=== PATIENT | female | born 1975 | race Caucasian/White ===

== ENCOUNTER 2016-06-26 16:53 | Emergency (ER) | payer SELFPAY ==
[~2016-06-26] VITALS: Ht 157.5 cm; Wt 58.0 kg
[~2016-06-26 16:53] MED LIST: ALBU1AER INH; PRED20 PO; PROZ20CA11 PO; XANA1TAB6 PO; ZITH250T PO; ZOLP10TA3 PO
[2016-06-26 16:58] VITALS: BP 163/107; PULSE 117; RESP 22; TEMP 99; O2SAT 98
[2016-06-26] MEDS ORDERED: PROZ20CA11 PO ×2 (17:18→17:23)
[2016-06-26 17:21] VITALS: BP 163/107; PULSE 116; RESP 18; TEMP 99; O2SAT 99
--- NOTE | 2016-06-26 17:22 | PD ---
HPI Chief Complaint: Anxiety Time Seen by Provider: 17:11 Travel History International Travel<30 days: No Contact w/Intl Traveler<30days: No Traveled to known affect area: No History of Present Illness HPI The patient was seen and examined in the presence of the nurse. She complains of running out of her medications. She is on Prozac and Xanax. She ran out of her medications yesterday. She denies suicidal ideation. She did not call her physician for more medication. 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) Social History Alcohol Use: No Tobacco Use: Yes (1pack a week- cigs - and uses e-cigs) Substance Use: No Allergies-Medications (Allergen,Severity, Reaction): Coded Allergies: No Known Allergies (Verified , 06/26/16) Reported Meds & Prescriptions Reported Meds & Active Scripts Active Prozac (Fluoxetine HCl) 20 Mg Cap 20 Mg PO DAILY Proair Hfa (Albuterol Sulfate) 8.5 Gm Aero 1 Puff INH Q6H PRN * SHAKE WELL BEFORE USE * Deltasone 20 Mg Tab (Prednisone) 20 Mg Tab 60 Mg PO DAILY 5 Days Zithromax Z-Lm (Azithromycin) 250 Mg Tab 250 Mg PO DIRECTED 500 MG (2 TABLETS) PO ON DAY 1, THEN 250 MG (1 TABLET) PO ON DAYS 2 TO 5. Prozac (Fluoxetine HCl) 20 Mg Cap 20 Mg PO DAILY Reported Ambien 10 Mg Tab (Zolpidem Tartrate) 10 Mg Tab 10 Mg PO HS PRN Xanax 1 mg (Alprazolam) Alprazolam 1 mg Tab 1 Tab PO TID Review of Systems General / Constitutional: No: Fever HENT: No: Headaches Cardiovascular: No: Chest Pain or Discomfort Physical Exam Narrative CARDIOVASCULAR: Regular rate and rhythm without murmur. Extremities showed no edema or varicosities. RESPIRATORY: Respiratory effort unlabored, no retractions or use of accessory muscles. Breath sounds are clear and symmetric. NECK: Symmetrical appearance, midline trachea. No mass or crepitus. Thyroid without enlargement, tenderness, or mass. SKIN: Inspection shows no rash or ulcers. Palpation shows no induration or nodules. Data Data Last Documented VS Vital Signs Date Time Temp Pulse Resp B/P Pulse Ox O2 Delivery O2 Flow Rate FiO2 06/26/16 16:58 99.0 117 22 163/107 98 Orders Chlordiazepoxide (Librium) (06/26/16 17:30) [facility] Medical Decision Making Medical Screen Exam Complete: Yes Emergency Medical Condition: Yes Medical Record Reviewed: Yes Differential Diagnosis Depression, anxiety, adjustment disorder Narrative Course I have reviewed the patient's electronic medical record. Patient is anxiety and depression but not suicidal and not wanting psychiatric screening. She wants refills of her medications. I wrote her a month of Prozac Recommend she weaned herself off of Xanax and discussed this with her physician I gave her a dose of Librium now I don't feel she has benzodiazepine withdrawal now Diagnosis Primary Impression: Anxiety and depression Additional Instructions: The patient was advised to follow up with their physician and return if they worsen. Med/Other Pt SpecificInfo: Prescription(s) given Scripts Fluoxetine (Prozac)20 Mg Cap20 Mg PO DAILY #30 CAP Ref 0 Prov:Papo Sanders MD 06/26/16 Disposition: 01 DISCHARGE HOME Condition: Stable Papo Sanders MD Jun 26, 2016 17:22
[2016-06-26] MEDS ORDERED: AMBI10TA PO (17:23)
[2016-06-26] MEDS ORDERED: XANA1TAB2 PO (17:23)
[2016-06-26] MEDS ORDERED: chlordiazePOXIDE 25 MG CAP PO ONE (17:30)
== END 2016-06-26 17:37 | disposition home or self-care (01) ==
LOC: PHED 16:53
DX: F41.8 Other specified anxiety disorders (principal); F17.210 Nicotine dependence, cigarettes, uncomplicated
CPT/HCPCS: 99283

== ENCOUNTER 2017-04-11 05:58 | Emergency (ER) | payer SELFPAY ==
[~2017-04-11] VITALS: Ht 157.5 cm; Wt 55.0 kg
[~2017-04-11 05:58] MED LIST changes: -ALBU1AER INH; +AMBI10TA PO; -PRED20 PO; +XANA1TAB2 PO; -XANA1TAB6 PO; -ZITH250T PO; -ZOLP10TA3 PO
[2017-04-11 06:02] VITALS: BP 156/88; PULSE 81; RESP 18; TEMP 98.3; O2SAT 100
[2017-04-11] MEDS ORDERED: SODIUM CHLOR 0.9% 1000 ML INJ 1,000 ML IV SCH (06:06)
[2017-04-11 06:09] VITALS: O2SAT 100
[2017-04-11] MEDS ORDERED: DIATRIZOATE MEGLUM/DIATRIZOATE SOD 9 ML CUP ONE (06:14)
[2017-04-11] MEDS ORDERED: MORPHINE SULFATE 4 MG/ML INJ IV PUSH ONE (06:15)
[2017-04-11] MEDS ORDERED: SODIUM CHLORIDE 0.9% FLUSH 10 ML FLUSH IV FLUSH PRN (06:15)
[2017-04-11] MEDS ORDERED: ONDANSETRON HCL 4 MG/2 ML VIAL IVP ONE (06:15)
[2017-04-11 06:23] LABS: AUTOMATED NEUTROPHIL # 3.3 TH/MM3 (1.8-7.7); BASOPHIL % 0.5 % (0.0-2.0); EOSINOPHIL # 0.1 TH/MM3 (0-0.4); EOSINOPHIL % 2.3 % (0.0-4.0); HEMATOCRIT 36.8 % (35.0-46.0); LYMPH % 34.7 % (9.0-44.0); LYMPHOCYTE # 2.1 TH/MM3 (1.0-4.8); MEAN CELL VOLUME 81.6 FL (80.0-100.0); MEAN CORPUSCULAR HEMOGLOBIN 26.5 PG (27.0-34.0); MEAN CORPUSCULAR HGB CONC 32.5 % (32.0-36.0); MEAN PLATELET VOLUME 7.3 FL (7.0-11.0); MONO % 8.7 % (0.0-8.0); MONOCYTE # 0.5 TH/MM3 (0-0.9); NEUT % 53.8 % (16.0-70.0); PLATELET COUNT 286 TH/MM3 (150-450); RED BLOOD COUNT 4.51 MIL/MM3 (4.00-5.30); RED CELL DISTRIBUTION WIDTH 13.9 % (11.6-17.2)
--- NOTE | 2017-04-11 06:27 | PD ---
HPI Chief Complaint: Abdominal Pain Time Seen by Provider: 06:06 Travel History International Travel<30 days: No Contact w/Intl Traveler<30days: No Traveled to known affect area: No History of Present Illness HPI 41-year-old female here for evaluation of lower abdominal and pelvic pain. Symptoms started suddenly about 30 minutes prior to arrival. Shortly after the pain started she noted vaginal bleeding. She states that she believes this is the beginning of her menstrual period. She has history of bilateral fallopian tube coils. No history of abdominal surgeries. Pain is described as cramping, moderate to severe, worse with movement and palpation, worse in her right lower quadrant. She denies fevers or recent illness. She feels nauseous but has not vomited. No urinary symptoms. She is sexually active with one partner, however she states she has not seen him in over 2 months. She believes this to be a monogamous relationship. She denies vaginal discharge other than bleeding. 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 SKIN: Focused skin assessment warm/dry. HEAD: Atraumatic. Normocephalic. EYES: Pupils equal and round. No scleral icterus. No injection or drainage. ENT: Mucous membranes pink and moist. NECK: Trachea midline. No JVD. CARDIOVASCULAR: Regular rate and rhythm. RESPIRATORY: No accessory muscle use. Clear to auscultation. Breath sounds equal bilaterally. GASTROINTESTINAL: Abdomen soft, nondistended. Moderate right lower quadrant and suprapubic tenderness without peritoneal signs. Rest of abdomen is soft and nontender. Normal bowel sounds. No hernias. AUDIO VISUAL ARTS DIRECTOR: Exam performed in the presence of a female nurse. Normal external genitalia. Moderate amount of blood in vaginal vault coming from cervical os. Normal appearing cervix without masses. No CMT. No uterine tenderness. No left adnexal mass or tenderness. No right adnexal mass, however there is moderate right adnexal tenderness. MUSCULOSKELETAL: No obvious deformities. No clubbing. No cyanosis. No edema. NEUROLOGICAL: Awake and alert. No obvious cranial nerve deficits. Motor grossly within normal limits. Normal speech. PSYCHIATRIC: Appropriate mood and affect; insight and judgment normal. Data Data Last Documented VS Vital Signs Date Time Temp Pulse Resp B/P (MAP) Pulse Ox O2 Delivery O2 Flow Rate FiO2 04/11/17 06:09 100 04/11/17 06:06 18 04/11/17 06:02 98.3 81 156/88 (110) Orders Orders Beta Hcg (Quant/Titer) (04/11/17 06:06) Complete Blood Count With Diff (04/11/17 06:06) Comprehensive Metabolic Panel (04/11/17 06:06) Lipase (04/11/17 06:06) Prothrombin Time / Inr (Pt) (04/11/17 06:06) Act Partial Throm Time (Ptt) (04/11/17 06:06) Urinalysis - C+S If Indicated (04/11/17 06:06) Ct Abd/Pel W Iv Contrast(Rout) (04/11/17 06:06) Iv Access Insert/Monitor (04/11/17 06:06) Ecg Monitoring (04/11/17 06:06) Oximetry (04/11/17 06:06) Morphine Inj (Morphine Inj) (04/11/17 06:15) Ondansetron Inj (Zofran Inj) (04/11/17 06:15) Sodium Chlor 0.9% 1000 Ml Inj (Ns 1000 M (04/11/17 06:06) Sodium Chloride 0.9% Flush (Ns Flush) (04/11/17 06:15) Ed Urine Pregnancytest Poc (04/11/17 06:06) Gc And Chlamydia Pcr (04/11/17 06:06) Wet Prep Profile (04/11/17 06:06) Oral Contrast - Adult (04/11/17 06:09) Diatrizoate Liq ( Gastroview Liq) (04/11/17 06:14) Ketorolac Inj (Toradol Inj) (04/11/17 06:45) Labs Laboratory Tests Test 04/11/17 06:10 White Blood Count 6.0 TH/MM3 Red Blood Count 4.51 MIL/MM3 Hemoglobin 12.0 GM/DL Hematocrit 36.8 % Mean Corpuscular Volume 81.6 FL Mean Corpuscular Hemoglobin 26.5 PG Mean Corpuscular Hemoglobin Concent 32.5 % Red Cell Distribution Width 13.9 % Platelet Count 286 TH/MM3 Mean Platelet Volume 7.3 FL Neutrophils (%) (Auto) 53.8 % Lymphocytes (%) (Auto) 34.7 % Monocytes (%) (Auto) 8.7 % Eosinophils (%) (Auto) 2.3 % Basophils (%) (Auto) 0.5 % Neutrophils # (Auto) 3.3 TH/MM3 Lymphocytes # (Auto) 2.1 TH/MM3 Monocytes # (Auto) 0.5 TH/MM3 Eosinophils # (Auto) 0.1 TH/MM3 Basophils # (Auto) 0.0 TH/MM3 CBC Comment DIFF FINAL Differential Comment Prothrombin Time 10.0 SEC Prothromb Time International Ratio 0.9 RATIO Activated Partial Thromboplast Time 22.4 SEC Blood Urea Nitrogen 10 MG/DL Creatinine 0.69 MG/DL Random Glucose 84 MG/DL Total Protein 6.8 GM/DL Albumin 3.6 GM/DL Calcium Level 8.3 MG/DL Alkaline Phosphatase 23 U/L Aspartate Amino Transf (AST/SGOT) 10 U/L Alanine Aminotransferase (ALT/SGPT) 16 U/L Total Bilirubin 0.2 MG/DL Sodium Level 139 MEQ/L Potassium Level 3.7 MEQ/L Chloride Level 107 MEQ/L Carbon Dioxide Level 23.3 MEQ/L Anion Gap 9 MEQ/L Estimat Glomerular Filtration Rate 93 ML/MIN Lipase 148 U/L Human Chorionic Gonadotropin, Quant LESS THAN 1 MIU/ML MDM Medical Decision Making Medical Screen Exam Complete: Yes Emergency Medical Condition: Yes Differential Diagnosis Appendicitis, ovarian cyst, ovarian torsion, ectopic , cystitis, UTI, nephrolithiasis, ureterolithiasis, PID, TOA, menstrual cramping Narrative Course Initial vital signs show heart rate 81, blood pressure 156/88, pulse ox 100% on room air, oral temp of 98.3F. CBC: WBC 6, hemoglobin 12, hematocrit 36.8, platelets 286. CMP is unremarkable. Lipase is 148. Beta hCG is negative. Patient's pain was alleviated after 4 mg of IV morphine, however about 45 minutes later it began to return. She will be given a dose of Toradol. At approximate 7:00 AM at the end of my shift the patient was signed out to oncoming provider Dr. Frausto to follow up with CT abdomen pelvis and formulate a disposition. Neeraj Putnam MD Apr 11, 2017 06:27
[2017-04-11 06:31] LABS: CHLORIDE 107 MEQ/L (98-107); SODIUM (NA) 139 MEQ/L (136-145)
[2017-04-11 06:34] LABS: ALBUMIN 3.6 GM/DL (3.4-5.0); BICARBONATE 23.3 MEQ/L (21.0-32.0); CALCIUM 8.3 MG/DL (8.5-10.1); INTERNATIONAL NORMALIZED RATIO 0.9 RATIO; LIPASE 148 U/L (73-393)
[2017-04-11 06:35] LABS: BLOOD UREA NITROGEN 10 MG/DL (7-18); GLUCOSE,RANDOM 84 MG/DL (74-106)
[2017-04-11 06:37] LABS: ALT (GPT) 16 U/L (10-53); AST (GOT) 10 U/L (15-37); CREATININE 0.69 MG/DL (0.50-1.00); GLOMERULAR FILTRATION RATE 93 ML/MIN (>89)
[2017-04-11 06:39] LABS: TOTAL BILIRUBIN ADULT 0.2 MG/DL (0.2-1.0); TOTAL PROTEIN 6.8 GM/DL (6.4-8.2)
[2017-04-11 06:40] LABS: ALKALINE PHOSPHATASE 23 U/L (45-117)
[2017-04-11] MEDS ORDERED: KETOROLAC TROMETHAMINE 30 MG/ML (IVP) VIAL IV PUSH ONE (06:45)
[2017-04-11 07:18] LABS: BILIRUBIN, URINE NEG (NEG); BLOOD, URINE LARGE (NEG); GLUCOSE,URINE NEG (NEG); KETONE, URINE NEG (NEG); NITRITE,URINE NEG (NEG); PH, URINE 5.5 (5.0-8.5); URINE LEUKOCYTE ESTERASE NEG (NEG)
[2017-04-11 07:19] LABS: URINE COLOR PINK (YELLW/STRAW)
[2017-04-11 07:21] LABS: RBC, URINE INNUM /hpf (0-3)
[2017-04-11 07:30] VITALS: RESP 16
[2017-04-11] MEDS ORDERED: IOHEXOL 350 MG/ML 10 ML VIAL (for RAD DIAG) IVCONTRAST ONE (08:30)
--- NOTE | 2017-04-11 09:14 | RADRPT ---
EXAM DATE/TIME: 04/11/2017 08:24 [place] COMPARISON: No previous studies available for comparison. INDICATIONS : Lower abdominal pain and cramping. IV CONTRAST: 85 cc Omnipaque 350 (iohexol) IV ORAL CONTRAST: Partial prescribed oral contrast ingested. RADIATION DOSE: 4.94 CTDIvol (mGy) MEDICAL HISTORY : Gastroesophageal reflux disease. Cardiovascular disease Asthma. SURGICAL HISTORY : None. ENCOUNTER: Initial ACUITY: 1 day PAIN SCALE: 4/10 LOCATION: Right lower quadrant TECHNIQUE: Volumetric scanning of the abdomen and pelvis was performed. Using automated exposure control and ad justment of the mA and/or kV according to patient size, radiation dose was kept as low as reasonably achievable to obtain optimal diagnostic quality images. DICOM format image data is available electro nically for review and comparison. FINDINGS: LOWER LUNGS: The visualized lower lungs are clear. LIVER: Homogeneous density without lesion. There is no dilation of the biliary tree. No calcified gallston es. SPLEEN: There is a 3 cm heterogeneous mass involving the spleen. There is the suggestion of peripheral nodula r enhancement. PANCREAS: Within normal limits. KIDNEYS: Normal in size and shape. There is no mass, stone or hydronephrosis. ADRENAL GLANDS: Within normal limits. VASCULAR: There is no aortic aneurysm. BOWEL/MESENTERY: The stomach, small bowel, and colon demonstrate no acute abnormality. There is no free intraperitone al air or fluid. ABDOMINAL WALL: Within normal limits. RETROPERITONEUM: There is no lymphadenopathy. BLADDER: No wall thickening or mass. REPRODUCTIVE: The uterus is anteverted. No adnexal mass or fluid collection. Bilateral tubal occlusive device is no rupa. INGUINAL: There is no lymphadenopathy or hernia. MUSCULOSKELETAL: Within normal limits for patient age. CONCLUSION: 1. No acute abnormality to explain the patient's pain. 2. 3 cm lesion involving the spleen. This likely relates to a hemangioma that determination cannot be made off of this standard protocol CT. Considered ultrasound further evaluate. Fabio Churchill Jr., MD on April 11, 2017 at 9:05 Board Certified Radiologist. This report was verified electronically.
[2017-04-11] MEDS ORDERED: MOBI15TA PO (09:33)
[2017-04-11] MEDS ORDERED: TYLETAB34 PO (09:33)
--- NOTE | 2017-04-11 09:33 | PD ---
Physical Exam Narrative Patient was seen by ED physician and signed out to me. Data Data Last Documented VS Vital Signs Date Time Temp Pulse Resp B/P (MAP) Pulse Ox O2 Delivery O2 Flow Rate FiO2 04/11/17 07:30 16 04/11/17 06:09 100 04/11/17 06:02 98.3 81 156/88 (110) Orders Orders Beta Hcg (Quant/Titer) (04/11/17 06:06) Complete Blood Count With Diff (04/11/17 06:06) Comprehensive Metabolic Panel (04/11/17 06:06) Lipase (04/11/17 06:06) Prothrombin Time / Inr (Pt) (04/11/17 06:06) Act Partial Throm Time (Ptt) (04/11/17 06:06) Urinalysis - C+S If Indicated (04/11/17 06:06) Ct Abd/Pel W Iv Contrast(Rout) (04/11/17 06:06) Iv Access Insert/Monitor (04/11/17 06:06) Ecg Monitoring (04/11/17 06:06) Oximetry (04/11/17 06:06) Morphine Inj (Morphine Inj) (04/11/17 06:15) Ondansetron Inj (Zofran Inj) (04/11/17 06:15) Sodium Chlor 0.9% 1000 Ml Inj (Ns 1000 M (04/11/17 06:06) Sodium Chloride 0.9% Flush (Ns Flush) (04/11/17 06:15) Ed Urine Pregnancytest Poc (04/11/17 06:06) Gc And Chlamydia Pcr (04/11/17 06:06) Wet Prep Profile (04/11/17 06:06) Oral Contrast - Adult (04/11/17 06:09) Diatrizoate Liq ( Gastroview Liq) (04/11/17 06:14) Ketorolac Inj (Toradol Inj) (04/11/17 06:45) Urine Culture (04/11/17 06:40) Iohexol 350 Inj (Omnipaque 350 Inj) (04/11/17 08:30) Labs Laboratory Tests Test 04/11/17 06:10 04/11/17 06:40 04/11/17 06:45 White Blood Count 6.0 TH/MM3 Red Blood Count 4.51 MIL/MM3 Hemoglobin 12.0 GM/DL Hematocrit 36.8 % Mean Corpuscular Volume 81.6 FL Mean Corpuscular Hemoglobin 26.5 PG Mean Corpuscular Hemoglobin Concent 32.5 % Red Cell Distribution Width 13.9 % Platelet Count 286 TH/MM3 Mean Platelet Volume 7.3 FL Neutrophils (%) (Auto) 53.8 % Lymphocytes (%) (Auto) 34.7 % Monocytes (%) (Auto) 8.7 % Eosinophils (%) (Auto) 2.3 % Basophils (%) (Auto) 0.5 % Neutrophils # (Auto) 3.3 TH/MM3 Lymphocytes # (Auto) 2.1 TH/MM3 Monocytes # (Auto) 0.5 TH/MM3 Eosinophils # (Auto) 0.1 TH/MM3 Basophils # (Auto) 0.0 TH/MM3 CBC Comment DIFF FINAL Differential Comment Prothrombin Time 10.0 SEC Prothromb Time International Ratio 0.9 RATIO Activated Partial Thromboplast Time 22.4 SEC Blood Urea Nitrogen 10 MG/DL Creatinine 0.69 MG/DL Random Glucose 84 MG/DL Total Protein 6.8 GM/DL Albumin 3.6 GM/DL Calcium Level 8.3 MG/DL Alkaline Phosphatase 23 U/L Aspartate Amino Transf (AST/SGOT) 10 U/L Alanine Aminotransferase (ALT/SGPT) 16 U/L Total Bilirubin 0.2 MG/DL Sodium Level 139 MEQ/L Potassium Level 3.7 MEQ/L Chloride Level 107 MEQ/L Carbon Dioxide Level 23.3 MEQ/L Anion Gap 9 MEQ/L Estimat Glomerular Filtration Rate 93 ML/MIN Lipase 148 U/L Human Chorionic Gonadotropin, Quant LESS THAN 1 MIU/ML Urine Collection Type CLEAN CATCH Urine Color PINK Urine Turbidity SLIGHT Urine pH 5.5 Urine Specific [place] 1.005 Urine Protein 100 mg/dL Urine Glucose (UA) NEG mg/dL Urine Ketones NEG mg/dL Urine Occult Blood LARGE Urine Nitrite NEG Urine Bilirubin NEG Urine Leukocyte Esterase NEG Urine RBC INNUM /hpf Urine WBC 20-24 /hpf Urine Squamous Epithelial Cells 6-8 /hpf Microscopic Urinalysis Comment CULTURE INDICATED Urine Collection Time 06:40 Clue Cells (Wet Prep) NONE SEEN Vaginal Trichomonas (Wet Prep) NONE SEEN Vaginal Yeast (Wet Prep) NONE SEEN MDM Supervised Visit with MEHUL: No Interpretation(s) Last Impressions Abdomen/Pelvis CT 04/11/17 0606 Signed Impressions: Service Date/Time: Tuesday, April 11, 2017 08:24 - CONCLUSION: 1. No acute abnormality to explain the patient's pain. 2. 3 cm lesion involving the spleen. This likely relates to a hemangioma that determination cannot be made off of this standard protocol CT. Considered ultrasound further evaluate. Fabio Churchill Jr., MD CBC within normal limit. CMP within normal limit. Beta HCG negative. UA positive for WBC or RBC were prepped negative. Diagnosis Primary Impression: Dysmenorrhea Patient Instructions: General Instructions Additional Instruction: Take medications as needed for pain. Follow-up with banquet attendant. Return if worse. Med/Other Pt SpecificInfo: Prescription(s) given Scripts Meloxicam (Mobic) 15 Mg Tab 15 MG PO DAILY for Pain, #20 TAB 0 Refills Prov: Blayne Frausto MD 04/11/17 Acetaminophen-Codeine (Tylenol-Codeine #3) 300-30 mg Tab 1-2 TAB PO Q6H Y for PAIN, #20 TAB 0 Refills Prov: Blayne Frausto MD 04/11/17 Disposition: 01 DISCHARGE HOME Condition: Stable Blayne Frausto MD Apr 11, 2017 09:33
== END 2017-04-11 10:05 | disposition home or self-care (01) ==
LOC: PHED 05:58
DX: N94.6 Dysmenorrhea, unspecified (principal); R10.31 Right lower quadrant pain; R11.0 Nausea; J45.909 Unspecified asthma, uncomplicated; Z72.0 Tobacco use
CPT/HCPCS: 74177; 80053; 81001; 83690; 84702; 84703; 85025; 85610; 85730; 87086; 87210; 87491; 87591; 96374; 96375; 99285; J1885; J2270; J2405; J7030; Q9963; Q9967

== ENCOUNTER 2017-05-07 06:31 | Emergency (ER) | payer SELFPAY ==
[~2017-05-07] VITALS: Ht 157.5 cm; Wt 54.3 kg
[~2017-05-07 06:31] MED LIST changes: +MOBI15TA PO; +TYLETAB34 PO
[2017-05-07 06:37] VITALS: BP 147/67; PULSE 91; RESP 12; TEMP 97.3; O2SAT 100
[2017-05-07 06:43] VITALS: BP 147/67; PULSE 91; RESP 16; TEMP 97.3; O2SAT 100
--- NOTE | 2017-05-07 06:57 | PD ---
HPI Chief Complaint: Oral / Dental Pain or Problem Time Seen by Provider: 06:52 Travel History International Travel<30 days: No Contact w/Intl Traveler<30days: No Traveled to known affect area: No History of Present Illness HPI 41-year-old female patient presents to the ER today, states that she had a dental extraction of the right maxillary molar done on Sunday, and overnight started having increased pain in that area, radiating up to the right ear. She denies any fevers or any other issues. Pain is currently rated a 10 out of 10. She had tried to contact her dentist but have no emergency contact numbers. Modifying Factors: None Associated Signs & Symptoms: Worsening dental pain on the right molar after extraction Risk Factors: None PFSH Past Medical History Asthma: Yes (induced with sickness) Atrial Fibrillation: Yes Anxiety: Yes (and panic attacks) Depression: Yes Heart Rhythm Problems: Yes Cardiovascular Problems: Yes (a-fib) Diminished Hearing: No GERD: Yes Respiratory: Yes Pneumonia: Yes Tetanus Vaccination: > 5 Years Influenza Vaccination: No ?: Not LMP: 05/03/17 Past Surgical History Cardiac Surgery: Yes (heart ablation) Gynecologic Surgery: Yes ( control coils-essure coils- 2012) Other Surgery: Yes (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) Social History Alcohol Use: No Tobacco Use: Yes Substance Use: No Allergies-Medications (Allergen,Severity, Reaction): Coded Allergies: No Known Allergies (Verified , 04/11/17) Reported Meds & Prescriptions Reported Meds & Active Scripts Active Mobic (Meloxicam) 15 Mg Tab 15 Mg PO DAILY Tylenol-Codeine #3 (Acetaminophen-Codeine) 300-30 mg Tab 1-2 Tab PO Q6H PRN Prozac (Fluoxetine HCl) 20 Mg Cap 20 Mg PO DAILY Reported Ambien (Zolpidem Tartrate) 10 Mg Tab 10 Mg PO HS PRN Xanax (Alprazolam) 1 Mg Tab 1 Mg PO Q8H PRN Review of Systems Except as stated in HPI: all other systems reviewed are Neg Physical Exam Narrative GENERAL: Well-nourished, well-developed middle age female patient in moderate distress. SKIN: Focused skin assessment warm/dry. HEAD: Normocephalic. EYES: No scleral icterus. No injection or drainage. DENTAL: No loose or chipped teeth. No malocclusion. The right maxillary molar extraction site with no surrounding erythema, no bleeding. NECK: Supple, trachea midline. No JVD or lymphadenopathy. CARDIOVASCULAR: Regular rate and rhythm without murmurs, gallops, or rubs. RESPIRATORY: Breath sounds equal bilaterally. No accessory muscle use. GASTROINTESTINAL: Abdomen soft, non-tender, nondistended. MUSCULOSKELETAL: No cyanosis, or edema. BACK: Nontender without obvious deformity. No CVA tenderness. Data Data Last Documented VS Vital Signs Date Time Temp Pulse Resp B/P (MAP) Pulse Ox O2 Delivery O2 Flow Rate FiO2 05/07/17 06:43 97.3 91 16 147/67 (93) 100 Orders Orders Ed Discharge Order (05/07/17 07:03) Oxycodone-Acetamin 5-325 Mg (Percocet (05/07/17 07:15) MDM Medical Decision Making Medical Screen Exam Complete: Yes Emergency Medical Condition: Yes Medical Record Reviewed: Yes Differential Diagnosis Postprocedural pain versus dry socket Narrative Course At this point, my plan would be to give her symptomatically relief or pain and have her follow-up with her dentist tomorrow. I do not see any signs of acute abscess, bleeding, or other acute processes. The socket was flushed with normal saline 20 cc. Patient will need to see her dentist for further treatment. The plan was discussed with her and she states understanding. Diagnosis Primary Impression: Pain, dental Med/Other Pt SpecificInfo: Prescription(s) given Scripts Oxycodone-Acetaminophen (Percocet) 5-325 mg Tab 1 TAB PO Q6H Y for PAIN, #7 TAB 0 Refills Prov: Jessica Ferguson MD 05/07/17 Disposition: 01 DISCHARGE HOME Condition: Stable Jessica Ferguson MD May 07, 2017 06:56
[2017-05-07] MEDS ORDERED: PERC5TAB12 PO (07:04)
[2017-05-07] MEDS ORDERED: oxyCODONE/ACETAMINOPHEN 5 MG/325 MG TAB PO ONE (07:15)
== END 2017-05-07 07:48 | disposition home or self-care (01) ==
LOC: PHED 06:31
DX: K08.89 Other specified disorders of teeth and supporting structures (principal); G89.18 Other acute postprocedural pain; Z72.0 Tobacco use
CPT/HCPCS: 99283

== ENCOUNTER 2017-06-25 17:39 | Emergency (ER) | payer SELFPAY ==
[~2017-06-25] VITALS: Ht 157.5 cm; Wt 53.9 kg
[~2017-06-25 17:39] MED LIST changes: +PERC5TAB12 PO
[2017-06-25 17:42] VITALS: BP 134/60; PULSE 108; RESP 18; TEMP 100.2; O2SAT 98
[2017-06-25] MEDS ORDERED: MAGICADU2 SWISH-SWAL (18:18)
[2017-06-25] MEDS ORDERED: AMOX875T PO (18:18)
--- NOTE | 2017-06-25 18:22 | PD ---
HPI . Sore throat Chief Complaint: Cold / Flu Symptoms Time Seen by Provider: 18:04 Travel History International Travel<30 days: No Contact w/Intl Traveler<30days: No Traveled to known affect area: No History of Present Illness HPI Patient presents with a chief complaint of a sore throat. Onset was at 1 AM. It is associated with a fever and cervical adenopathy. She states that she has tried Tylenol and ibuprofen without relief of her discomfort for her fever. She rates her throat pain at 8/10. 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) Social History Alcohol Use: No (quit, in AA) Tobacco Use: Yes (2 cigs daily) Substance Use: No Allergies-Medications (Allergen,Severity, Reaction): Coded Allergies: No Known Allergies (Verified Adverse Reaction, Unknown, 06/25/17) Reported Meds & Prescriptions Reported Meds & Active Scripts Active Magic Mouthwash Adult Liq (Multi-Ingredient Mouthwash/Gargle) 120 Ml Susp 10 Ml SWISH-SWAL ACHS Each 5mL contains: Nystatin 200,000units, Diphenhydramine 4.25mg, Viscous Lidocaine 10mg, Ross syrup 0.8 mL Amoxicillin 875 Mg Tab 875 Mg PO BID 7 Days Prozac (Fluoxetine HCl) 20 Mg Cap 20 Mg PO DAILY Reported Xanax (Alprazolam) 1 Mg Tab 1 Mg PO Q8H PRN Review of Systems Except as stated in HPI: all other systems reviewed are Neg General / Constitutional: Positive: Fever, Chills HENT: Positive: Sore Throat Psychiatric: Positive: Anxiety Hematologic/Lymphatic: Positive: Lymph Node Enlargement Physical Exam Narrative GENERAL: Awake and alert and in no acute distress. SKIN: Warm and dry. HEAD: Normocephalic/atraumatic. EYES: Pupils are equal. Extraocular movements are intact. ENT: Mild erythema of the oropharynx. No tonsillar enlargement. No exudate. NECK: Normal range of motion. Positive anterior cervical lymphadenopathy. CARDIOVASCULAR: Regular rate and rhythm. RESPIRATORY: Nonlabored respirations. MUSCULOSKELETAL: Atraumatic. NEUROLOGICAL: Nonfocal. PSYCHIATRIC: Anxious appearing. Data Data Last Documented VS Vital Signs Date Time Temp Pulse Resp B/P (MAP) Pulse Ox O2 Delivery O2 Flow Rate FiO2 06/25/17 17:42 100.2 108 18 134/60 (84) 98 Orders Orders Ed Discharge Order (06/25/17 18:18) MDM Medical Decision Making Medical Screen Exam Complete: Yes Emergency Medical Condition: Yes Differential Diagnosis Differential diagnosis of sore throat includes but is not limited to viral illness, strep throat, mononucleosis, retropharyngeal abscess, peritonsillar abscess Narrative Course Patient presents with the chief complaint of a sore throat. Acute onset was at 1 AM. It is associated with fever and adenopathy. She will be treated presumptively for strep. Diagnosis Primary Impression: Pharyngitis Qualified Codes: J02.9 - Acute pharyngitis, unspecified Patient Instructions: General Instructions Departure Forms: Tests/Procedures Scripts Euqggklx-Mjspnljcypaxlir-Zablsbenp Liq (Magic Mouthwash Adult Liq) 120 Ml Susp 10 ML SWISH-SWAL ACHS for Mouth sores, #120 ML 0 Refills Each 5mL contains: Nystatin 200,000units, Diphenhydramine 4.25mg, Viscous Lidocaine 10mg, Ross syrup 0.8 mL Prov: Rohini Ro MD 06/25/17 Amoxicillin (Amoxicillin) 875 Mg Tab 875 MG PO BID for Infection for 7 Days, #14 TAB 0 Refills Prov: Rohini Ro MD 06/25/17 Disposition: 01 DISCHARGE HOME Condition: Stable Rohini Ro MD Jun 25, 2017 18:22
== END 2017-06-25 18:41 | disposition home or self-care (01) ==
LOC: PHED 17:39
DX: J02.9 Acute pharyngitis, unspecified (principal); J45.909 Unspecified asthma, uncomplicated; I48.91 Unspecified atrial fibrillation; F41.9 Anxiety disorder, unspecified; F32.9 Major depressive disorder, single episode, unspecified; K21.9 Gastro-esophageal reflux disease without esophagitis; F17.210 Nicotine dependence, cigarettes, uncomplicated
CPT/HCPCS: 99284

== ENCOUNTER 2017-06-27 06:43 | Emergency (ER) | payer SELFPAY ==
[~2017-06-27] VITALS: Ht 157.5 cm; Wt 55.2 kg
[~2017-06-27 06:43] MED LIST changes: +AMOX875T PO; +MAGICADU2 SWISH-SWAL
[2017-06-27 06:45] VITALS: BP 136/82; PULSE 104; RESP 18; TEMP 98; O2SAT 98
--- NOTE | 2017-06-27 07:22 | PD ---
HPI Chief Complaint: ENT Complaint Time Seen by Provider: 07:13 Travel History International Travel<30 days: No Contact w/Intl Traveler<30days: No Traveled to known affect area: No History of Present Illness HPI This patient complains of sore throat. She was here 2 days ago and presumptively treated for strep. She is taking amoxicillin and Magic mouthwash for symptom relief. She reports that she is not feeling better. No fever. 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) Social History Alcohol Use: No (quit, in AA) Tobacco Use: Yes (2 cigs daily) Substance Use: No Allergies-Medications (Allergen,Severity, Reaction): Coded Allergies: No Known Allergies (Verified Adverse Reaction, Unknown, 06/27/17) Reported Meds & Prescriptions Reported Meds & Active Scripts Active Magic Mouthwash Adult Liq (Multi-Ingredient Mouthwash/Gargle) 120 Ml Susp 10 Ml SWISH-SWAL ACHS Each 5mL contains: Nystatin 200,000units, Diphenhydramine 4.25mg, Viscous Lidocaine 10mg, Ross syrup 0.8 mL Amoxicillin 875 Mg Tab 875 Mg PO BID 7 Days Prozac (Fluoxetine HCl) 20 Mg Cap 20 Mg PO DAILY Reported Xanax (Alprazolam) 1 Mg Tab 1 Mg PO Q8H PRN Review of Systems General / Constitutional: No: Fever HENT: Positive: Sore Throat Respiratory: No: Cough Gastrointestinal: No: Diarrhea Physical Exam Narrative Psych: Normal mood and affect. Normal insight and judgment. SKIN: Focused skin assessment reveals no rash or ulcers. Skin is warm and dry. Palpation shows no induration or nodules. NECK: Symmetrical appearance, midline trachea. No mass or crepitus. Thyroid without enlargement, tenderness, or mass. Oral cavity: Midline uvula without shift. There is some whitish exudate on his tonsillar area. Data Data Last Documented VS Vital Signs Date Time Temp Pulse Resp B/P (MAP) Pulse Ox O2 Delivery O2 Flow Rate FiO2 06/27/17 06:45 98.0 104 18 136/82 (100) 98 Orders Orders Group A Rapid Strep Screen (06/27/17 07:20) MDM Medical Decision Making Medical Screen Exam Complete: Yes Emergency Medical Condition: Yes Medical Record Reviewed: Yes Differential Diagnosis Strep pharyngitis, mono, viral pharyngitis Narrative Course I have reviewed the patient's electronic medical record. Reviewed her visit from 2 days ago Recognizing it is low yield to obtain rapid strep on the patient's been on antibiotics, we sent one because she is here without improvement despite being compliant with medication However strep screen is come back positive for group A strep Patient has been on amoxicillin only for one day I encouraged her to continue the medication no full she will see improvement shortly Diagnosis Primary Impression: Acute streptococcal pharyngitis Additional Instructions: The patient was advised to follow up with their physician and return if they worsen. Med/Other Pt SpecificInfo: Other Disposition: 01 DISCHARGE HOME Condition: Stable Papo Sanders MD Jun 27, 2017 07:22
== END 2017-06-27 08:23 | disposition home or self-care (01) ==
LOC: PHEFT 06:43
DX: J02.0 Streptococcal pharyngitis (principal); B95.0 Streptococcus, group A, as the cause of diseases classified elsewhere; F17.210 Nicotine dependence, cigarettes, uncomplicated
CPT/HCPCS: 87880; 99283

== ENCOUNTER 2017-09-01 07:14 | Emergency (ER) | payer SELFPAY ==
[~2017-09-01] VITALS: Ht 157.5 cm; Wt 52.0 kg
[~2017-09-01 07:14] MED LIST changes: -AMBI10TA PO; -MOBI15TA PO; -PERC5TAB12 PO; -TYLETAB34 PO
[2017-09-01 07:15] VITALS: BP 142/77; PULSE 101; RESP 22; TEMP 98.6; O2SAT 98
[2017-09-01] MEDS ORDERED: ASPI-516 CHEW (07:26)
[2017-09-01 07:47] LABS: AUTOMATED NEUTROPHIL # 4.2 TH/MM3 (1.8-7.7); BASOPHIL % 0.6 % (0.0-2.0); EOSINOPHIL # 0.1 TH/MM3 (0-0.4); EOSINOPHIL % 1.8 % (0.0-4.0); HEMATOCRIT 34.8 % (35.0-46.0); HEMOGLOBIN 11.6 GM/DL (11.6-15.3); LYMPH % 31.5 % (9.0-44.0); LYMPHOCYTE # 2.3 TH/MM3 (1.0-4.8); MEAN CELL VOLUME 79.8 FL (80.0-100.0); MEAN CORPUSCULAR HEMOGLOBIN 26.5 PG (27.0-34.0); MEAN CORPUSCULAR HGB CONC 33.2 % (32.0-36.0); MEAN PLATELET VOLUME 6.9 FL (7.0-11.0); MONO % 8.6 % (0.0-8.0); MONOCYTE # 0.6 TH/MM3 (0-0.9); NEUT % 57.5 % (16.0-70.0); PLATELET COUNT 390 TH/MM3 (150-450); RED BLOOD COUNT 4.36 MIL/MM3 (4.00-5.30); RED CELL DISTRIBUTION WIDTH 16.4 % (11.6-17.2); WHITE BLOOD COUNT 7.2 TH/MM3 (4.0-11.0)
--- NOTE | 2017-09-01 07:53 | RADRPT ---
EXAM DATE/TIME: 09/01/2017 07:37 [facility] COMPARISON: CHEST SINGLE AP, March 03, 2016, 11:14. INDICATIONS : Short of breath, palpitations MEDICAL HISTORY : A fib SURGICAL HISTORY : cardiac ablation ENCOUNTER: Initial ACUITY: 3 days PAIN SCORE: 0/10 LOCATION: Bilateral chest FINDINGS: A single view of the chest demonstrates the lungs to be symmetrically aerated without evidence of mas s, infiltrate or effusion. The cardiomediastinal contours are unremarkable. Osseous structures are intact. CONCLUSION: Normal examination. Sydnee Osorio MD on September 01, 2017 at 7:50 Board Certified Radiologist. This report was verified electronically.
[2017-09-01 07:57] LABS: CHLORIDE 106 MEQ/L (98-107); SODIUM (NA) 136 MEQ/L (136-145)
--- NOTE | 2017-09-01 07:58 | PD ---
HPI Chief Complaint: Cardiac Complaint Time Seen by Provider: 07:32 Travel History International Travel<30 days: No Contact w/Intl Traveler<30days: No Traveled to known affect area: No History of Present Illness HPI Patient comes in complaining of palpitations, feels like a very rapid pounding of her chest associated with a sensation of shortness of breath, like she cannot get enough air in out of time. She woke up this way, and does not have any associated symptoms such as fever, headache, chest pain, back pain, abdominal pain, nausea, vomiting, or diarrhea. Primary care physician is a Dr. Cobian negative [place] No known drug allergies Patient has a past medical history significant for atrial fibrillation status post ablation, asthma, depression, anxiety, GERD. 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) Social History Alcohol Use: No (quit, in AA) Tobacco Use: Yes (2 cigs daily) Substance Use: No Allergies-Medications (Allergen,Severity, Reaction): Coded Allergies: No Known Allergies (Verified Adverse Reaction, Unknown, 09/01/17) Reported Meds & Prescriptions Reported Meds & Active Scripts Active Prozac (Fluoxetine HCl) 20 Mg Cap 20 Mg PO DAILY Reported Aspirin 81 Mg Chew 81 Mg CHEW DAILY Xanax (Alprazolam) 1 Mg Tab 1 Mg PO Q8H PRN Review of Systems General / Constitutional: No: Fever Eyes: No: Visual changes HENT: No: Headaches Cardiovascular: Positive: Palpitations, Irregular Rhythm Respiratory: Positive: Shortness of Breath Gastrointestinal: No: Abdominal Pain Genitourinary: No: Dysuria Musculoskeletal: No: Pain Skin: No Rash Neurologic: No: Weakness Psychiatric: No: Depression Endocrine: No: Polydipsia Hematologic/Lymphatic: No: Easy Bruising Physical Exam Narrative GENERAL: SKIN: Warm and dry. HEAD: Atraumatic. Normocephalic. EYES: Pupils equal and round. No scleral icterus. No injection or drainage. ENT: No nasal bleeding or discharge. Mucous membranes pink and moist. NECK: Trachea midline. No JVD. CARDIOVASCULAR: Regular rate and rhythm. RESPIRATORY: No accessory muscle use. Clear to auscultation. Breath sounds equal bilaterally. GASTROINTESTINAL: Abdomen soft, non-tender, nondistended. MUSCULOSKELETAL: Extremities without clubbing, cyanosis, or edema. No obvious deformities. NEUROLOGICAL: Awake and alert. No obvious cranial nerve deficits. Motor grossly within normal limits. Five out of 5 muscle strength in the arms and legs. Normal speech. PSYCHIATRIC: Appropriate mood and affect; insight and judgment normal. Data Data Last Documented VS Vital Signs Date Time Temp Pulse Resp B/P (MAP) Pulse Ox O2 Delivery O2 Flow Rate FiO2 09/01/17 08:54 82 16 111/63 (79) 99 Room Air 09/01/17 07:15 98.6 Orders Orders Electrocardiogram (09/01/17 07:32) Complete Blood Count With Diff (09/01/17 07:32) Comprehensive Metabolic Panel (09/01/17 07:32) Troponin I (09/01/17 07:32) B-Type Natriuretic Peptide (09/01/17 07:32) Prothrombin Time / Inr (Pt) (09/01/17 07:32) Act Partial Throm Time (Ptt) (09/01/17 07:32) D-Dimer (09/01/17 07:32) Thyroid Stimulating Hormone (09/01/17 07:32) Chest, Single Ap (09/01/17 07:32) Labs Laboratory Tests Test 09/01/17 07:35 White Blood Count 7.2 TH/MM3 Red Blood Count 4.36 MIL/MM3 Hemoglobin 11.6 GM/DL Hematocrit 34.8 % Mean Corpuscular Volume 79.8 FL Mean Corpuscular Hemoglobin 26.5 PG Mean Corpuscular Hemoglobin Concent 33.2 % Red Cell Distribution Width 16.4 % Platelet Count 390 TH/MM3 Mean Platelet Volume 6.9 FL Neutrophils (%) (Auto) 57.5 % Lymphocytes (%) (Auto) 31.5 % Monocytes (%) (Auto) 8.6 % Eosinophils (%) (Auto) 1.8 % Basophils (%) (Auto) 0.6 % Neutrophils # (Auto) 4.2 TH/MM3 Lymphocytes # (Auto) 2.3 TH/MM3 Monocytes # (Auto) 0.6 TH/MM3 Eosinophils # (Auto) 0.1 TH/MM3 Basophils # (Auto) 0.0 TH/MM3 CBC Comment DIFF FINAL Differential Comment Prothrombin Time 9.7 SEC Prothromb Time International Ratio 1.0 RATIO Activated Partial Thromboplast Time 23.7 SEC D-Dimer Quantitative (PE/DVT) 0.35 MG/L FEU Blood Urea Nitrogen 11 MG/DL Creatinine 0.63 MG/DL Random Glucose 100 MG/DL Total Protein 7.1 GM/DL Albumin 3.7 GM/DL Calcium Level 8.1 MG/DL Alkaline Phosphatase 27 U/L Aspartate Amino Transf (AST/SGOT) 14 U/L Alanine Aminotransferase (ALT/SGPT) 15 U/L Total Bilirubin 0.2 MG/DL Sodium Level 136 MEQ/L Potassium Level 3.2 MEQ/L Chloride Level 106 MEQ/L Carbon Dioxide Level 23.4 MEQ/L Anion Gap 7 MEQ/L Estimat Glomerular Filtration Rate 103 ML/MIN Troponin I LESS THAN 0.02 NG/ML B-Type Natriuretic Peptide 17 PG/ML Thyroid Stimulating Hormone 3rd Gen 0.807 uIU/ML MDM Medical Decision Making Medical Screen Exam Complete: Yes Emergency Medical Condition: Yes Medical Record Reviewed: Yes Interpretation(s) EKG shows a sinus tachycardia 112 bpm, normal intervals, no ST-T changes, and no STEMI pattern. Differential Diagnosis Atrial fibrillation versus atrial flutter versus tachyarrhythmia versus pneumonia versus anemia versus dehydration versus pleural effusion versus pulmonary embolus versus pericardial effusion Narrative Course CBC shows no evidence of any leukocytosis, anemia, abnormal platelet count, or left shift. Coagulation profile is within normal limits. D-dimer is negative Patient's electrolytes are mostly within normal limits, but did find a potassium of 3.2 which is only mildly lower and can be corrected with diet changes. Normal kidney liver and pancreatic functions Normal TSH screening test Chest x-ray read by radiologist as normal examination Diagnosis Primary Impression: Palpitations Patient Instructions: General Instructions, Heart Palpitations (ED) Disposition: 01 DISCHARGE HOME Condition: Stable Deniz Sylvester MD Sep 01, 2017 07:58
[2017-09-01 08:00] LABS: CALCIUM 8.1 MG/DL (8.5-10.1)
[2017-09-01 08:01] LABS: ALBUMIN 3.7 GM/DL (3.4-5.0); BICARBONATE 23.4 MEQ/L (21.0-32.0); BLOOD UREA NITROGEN 11 MG/DL (7-18); GLUCOSE,RANDOM 100 MG/DL (74-106)
[2017-09-01 08:04] LABS: ALT (GPT) 15 U/L (10-53); AST (GOT) 14 U/L (15-37); CREATININE 0.63 MG/DL (0.50-1.00); GLOMERULAR FILTRATION RATE 103 ML/MIN (>89)
[2017-09-01 08:05] LABS: TOTAL BILIRUBIN ADULT 0.2 MG/DL (0.2-1.0); TOTAL PROTEIN 7.1 GM/DL (6.4-8.2)
[2017-09-01 08:07] LABS: ALKALINE PHOSPHATASE 27 U/L (45-117)
[2017-09-01 08:09] LABS: TROPONIN I LESS THAN 0.02 NG/ML (0.02-0.05)
[2017-09-01 08:24] LABS: D-DIMER 0.35 MG/L FEU (0.00-0.50); PROTHROMBIN TIME - PATIENT 9.7 SEC (9.8-11.6)
[2017-09-01 08:54] VITALS: BP 111/63; PULSE 82; RESP 16; O2SAT 99
--- NOTE | 2017-09-01 17:07 | EKG ---
Date Performed: 09/01/2017 Time Performed: 07:19:52 PTAGE: 42 years EKG: Sinus rhythm NORMAL ECG Since PREVIOUS TRACING , no significant change noted PREVIOUS TRACIN03/03/2016 10.58 DOCTOR: Reed Dee Interpretating Date/Time 09/01/2017 17:06:10
== END 2017-09-01 09:42 | disposition home or self-care (01) ==
LOC: PHED 07:14
DX: R00.2 Palpitations (principal); R00.0 Tachycardia, unspecified; R06.02 Shortness of breath; I48.91 Unspecified atrial fibrillation; F41.8 Other specified anxiety disorders; K21.9 Gastro-esophageal reflux disease without esophagitis; Z72.0 Tobacco use; Z87.09 Personal history of other diseases of the respiratory system
CPT/HCPCS: 71045; 80053; 83880; 84443; 84484; 85025; 85379; 85610; 85730; 93005; 99285